=== PATIENT | female | born 1995 | race Caucasian/White ===

== ENCOUNTER 2017-06-10 05:35 | Emergency (ER) | payer OTHER ==
--- NOTE | 2017-06-10 05:44 | EDPHY ---
H & P Source: Patient HPI/ROS: HPI CHIEF COMPLAINT: Laceration left arm self-inflicted, alcohol intoxication, M1 hold by police. HISTORY OF PRESENT ILLNESS: This patient 22-year-old female she has a history of bipolar disorder, anxiety, and self-harm with cutting, she presents emergency room with a laceration to the left arm. She sustained this approximately an hour ago. She does state that she drank multiple alcoholic beverages tonight. She denies any pill ingestion or co ingestion. She denies wanting to commit suicide. Upon arrival I did evaluate her left arm she has a 4 cm gaping laceration to the left forearm. Patient at this time is declining any treatment or care of the laceration. She specifically reports to me she does not want her laceration repaired. Patient reports that she had 3 large [place]ules Past Medical History: Bipolar disorder, anxiety the comma self-harm, self cutting Past Surgical History: Denies recent surgery Social History: Alcohol this evening. Family History: Noncontributory ROS REVIEW OF SYSTEMS: A comprehensive 10 point review of systems is otherwise negative aside from elements mentioned in the history of present illness. Exam Constitutional intoxicated with alcohol, smells of alcohol triage nursing summary reviewed, vital signs reviewed, awake/alert. Eyes normal conjunctivae and sclera, EOMI, PERRLA. HENT normal inspection, atraumatic, moist mucus membranes, no epistaxis, neck supple/ no meningismus, no raccoon eyes. Respiratory clear to auscultation bilaterally, normal breath sounds, no respiratory distress, no wheezing. Cardiovascular rate normal, regular rhythm, no murmur, no edema, distal pulses normal. Gastrointestinal soft, non-tender, no rebound, no guarding, normal bowel sounds, no distension, no pulsatile mass. Genitourinary no CVA tenderness. Musculoskeletal no midline vertebral tenderness, full range of motion, no calf swelling, no tenderness of extremities, no meningismus, good pulses, neurovascularly intact. Skin left forearm shows a 4 cm gaping large laceration, pink, warm, & dry, no rash, skin atraumatic. Neurologic awake, alert and oriented x 3, AAOx3, moves all 4 extremities equally, motor intact, sensory intact, CN II-XII intact, normal cerebellar, normal vision, normal speech. Psychiatric intoxicated with alcohol. Heme/Lymph/Immune no lymphadenopathy. Differential Diagnosis: Includes but is not limited to in a particular order bipolar disorder, mood disorder, depression, suicidal ideation, self-harm, acute alcohol intoxication Medical Decision Making: Plan for this patient she is on M1 hold. She will need blood draw for medical clearance. Once sober will need to re-evaluate her state in terms of getting her laceration repaired Re-evaluation: 0656AM: Patient's alcohol level elevated 108. Patient does appear intoxicated. She still refusing repair of the left forearm laceration. Once sober she will need to be re-evaluated to see if she will accept repaired the laceration. 0700: Patient is on M1 hold. Here suicidal ideation and acute alcohol intoxication with a self-inflicted left arm laceration. Patient be signed over to Dr. Linda Khanna at 7am. Patient needs to sober and then had mental health evaluation additionally her left arm laceration needs to be repaired if she allows us to. (Hema Norris) Constitutional: Initial Vital Signs Temperature (C) 36.6 C 06/10/17 05:45 Heart Rate 82 06/10/17 05:45 Respiratory Rate 18 06/10/17 05:45 Blood Pressure 123/67 H 06/10/17 05:45 O2 Sat (%) 95 06/10/17 05:45 O2 Delivery Mode Room Air Allergies/Adverse Reactions: penicillin V Allergy (Verified 06/10/17 06:06) Home Medications: Medication Instructions Recorded Citalopram Hydrobromide [celeXA 10 10 mg PO DAILY 06/10/17 MG] Medical Decision Making Procedures: Procedure: Laceration repair. The 5 cm laceration on the left forearm was anesthetized using lidocaine. The wound was irrigated, draped and explored to its base with a gloved finger. There were no deep structures involved. No foreign body palpable. The wound was repaired with 5 0 nylon. The wound repair was simple. (Nidhi Khanna) ED Course/Re-evaluation: 7:00 a.m.-I assumed care of this patient at shift change. She is resting comfortably with her eyes closed. She presents on an M1 hold for suicidal ideation. She is a cutter and has a forearm laceration, which she has refused to have sutured. Once she has sobered up, hopefully she will allow us to suture this laceration. 10am--agrees to suturing laceration. 1330: seeing pt now. This patient was seen by mental health and felt appropriate for outpatient treatment of depression. I agree with this assessment. She denies suicidal ideation and contracts for safety. (Nidhi Khanna) Differential Diagnosis: Differential diagnosis includes though it is not limited to suicidal ideation, overdose, acute psychosis, self-injury, alcohol withdrawal. (Nidhi Khanna) - Data Points Laboratory Results: Laboratory Results 06/10/17 05:56 06/10/17 05:56 Departure - Departure Disposition: Home, Routine, Self-Care Clinical Impression: Suicidal ideation Alcohol intoxication Qualifiers: Complication of substance-induced condition: uncomplicated Qualified Code(s): F10.920 - Alcohol use, unspecified with intoxication, uncomplicated Forearm laceration Qualifiers: Encounter type: initial encounter Laterality: left Qualified Code(s): S51.812A - Laceration without foreign body of left forearm, initial encounter Condition: Fair Instructions: Laceration (ED), Alcohol Intoxication (ED), Suicide Prevention for Adults (ED) Additional Instructions: Follow-up with mental health as suggested. Return in 10 days for suture removal. Referrals: [facility] [Outside] - As per Instructions
[2017-06-10 06:11] LABS: PLATELET COUNT 269 10^3/uL (150-400)
[2017-06-10 08:29] VITALS: RESP 16
[2017-06-10 15:12] VITALS: BP 129/58; PULSE 68; TEMP 97.9; O2SAT 97
== END 2017-06-10 15:11 | disposition home or self-care (01) ==
LOC: EEVIPCON 05:35
PROC: 0HQEXZZ Repair Left Lower Arm Skin, External Approach (ICD-10-PCS; principal; 2017-06-10)
DX: S51.812A Laceration without foreign body of left forearm, initial encounter (principal); F10.920 Alcohol use, unspecified with intoxication, uncomplicated; X78.9XXA Intentional self-harm by unspecified sharp object, initial encounter; Y93.89 Activity, other specified
CPT/HCPCS: 80305; G0480